=== PATIENT | male | born 1965 | race Caucasian/White ===

== ENCOUNTER 2017-03-21 11:08 | Emergency (ER) | payer OTHER ==
--- NOTE | 2017-03-21 14:01 | UC ---
Neck Pain HPI - HPI Summary HPI Summary: Patient presents to the with CC of mass to the left side of the neck and submandibular area just as he is about ready to eat. He states the moment he starts salivating, the areas become very large, are only slightly tender to the touch and will resolve spontaneously in less than 1 hour. Denies any trauma, recent illness. He is traveling and is also currently on opioids for chronic pain. Denies other symptoms. Denies fevers, sweats or chills. Otherwise healthy. He denies dysphagia, odynophagia or tongue swelling. - History of Current Complaint Chief Complaint: UCGeneralIllness Stated Complaint: NECK COMPLAINT Time Seen by Provider: 03/21/17 11:39 Hx Obtained From: Patient Onset/Duration Of Injury/Symptoms: Minutes Mechanism Of Injury: No Known Trauma Timing: Intermittent Episodes Onset/Duration: Sudden Onset, Lasting Minutes Severity: Mild Pain Intensity: 2 Pain Scale Used: 0-10 Numeric Location: Discrete At: - left parotid and submandibular Aggravating Factors: Nothing Alleviating Factors: Nothing Associated Signs & Symptoms: Positive: Negative - Risk Factors Meningitis Risk Factors: Negative - Allergies/Home Medications Allergies/Adverse Reactions: Allergies Allergy/AdvReac Type Severity Reaction Status Date / Time No Known Allergies Allergy Verified 03/21/17 11:27 Home Medications: Home Medications Gabapentin CAP(*) [Neurontin 400 mg CAP(*)] 1,200 mg PO TID 03/21/17 [History Confirmed 03/21/17] Hydromorphone ER TAB(NF) [Exalgo] 32 mg PO Q12H 03/21/17 [History Confirmed 09/02] OXcarbazepine TAB(*) [Trileptal 300 mg TAB(*)] 900 mg PO BID 03/21/17 [History Confirmed 03/21/17] oxyCODONE/Acetamin (NF) [Percocet 10325 (NF)] 1 tab PO BID 03/21/17 [ History Confirmed 03/21/17] PMH/Surg Hx/FS Hx/Imm Hx Previously Healthy: Yes - Surgical History Surgical History: Yes Surgery Procedure, Year, and Place: appy - Family History Known Family History: Positive: Unknown - Social History Occupation: Employed Full-time Lives: With Family Alcohol Use: None Substance Use Type: None Smoking Status (MU): Never Smoked Tobacco Review Of Systems Constitutional: Positive: Negative. Negative: Fever, Fatigue Skin: Negative: Rash Eyes: Negative: Photophobia, Diplopia ENT: Positive: Other - left parotid and submandibular. Negative: Sinus Congestion, Sinus Pain/Tenderness Respiratory: Positive: Negative Cardiovascular: Positive: Negative Musculoskeletal: Positive: Negative Neurological: Positive: Negative Psychological: Positive: Negative All Other Systems Reviewed And Are Negative: Yes Physical Exam Triage Information Reviewed: Yes Appearance: Well-Appearing, Well-Nourished Vital Signs: Initial Vital Signs Temp 98.4 F 03/21/17 11:30 Pulse 69 03/21/17 11:30 Resp 16 03/21/17 11:30 BP 116/81 03/21/17 11:30 Pulse Ox 99 03/21/17 11:30 Vital Signs Reviewed: Yes Eye Exam: Normal Eyes: Positive: Conjunctiva Clear ENT: Negative: Pharynx normal, Nasal drainage, TM bulging, Tonsillar swelling, Tonsillar exudate Dental Exam: Normal Neck: Positive: Tenderness @ - left parotid and submandibular slight enlargement. Negative: Nuchal Rigidity Respiratory Exam: Normal Respiratory: Positive: Chest non-tender, Lungs clear Cardiovascular Exam: Normal Cardiovascular: Positive: RRR Musculoskeletal Exam: Normal Musculoskeletal: Positive: Strength Intact Neurological Exam: Normal Neurological: Positive: Alert Psychological: Positive: Normal Response To Family, Age Appropriate Behavior Skin Exam: Normal Neck Pain Course/Dx - Course Course Of Treatment: Patient is evaluated for left parotid and submandibular enlargement at the start of salivating x 2 days. He states the areas become enlarged quickly (within a few minutes) and will then resolve spontaneously. Slight discomfort. Denies recent bacterial infections. He is encouraged to try hard sour candies for possible sialadenitis and return if symptoms worsen. Antibiotic deferred at this time and no ENT referral given as patient is from out of town and has appt with PCP in 2 days. He is given return precautions and is OK with plan and discharge. - Differential Dx/Diagnosis Differential Dx/HQI/PQRI: Dislocation, Dystonia, Torticollis Provider Diagnoses: SIALADENITIS Discharge - Discharge Plan Condition: Stable Disposition: HOME Patient Education Materials: Parotid Duct Obstruction (ED), Sialoadenitis (ED) Referrals: No Primary Care Phys,NOPCP [Primary Care Provider] - Additional Instructions: Please follow up with your PCP in 2 days as discussed Will try hard sour candies at this time and if any symptoms become worse - go to the ED You can discuss with your doctor any need for imaging or antibiotics, but at this time, we will defer Biotene is also very good for salivary stones - this is a mouthwash OTC.
== END 2017-03-21 12:07 | disposition home or self-care (01) ==
LOC: UCEAST 11:08
DX: K11.20 Sialoadenitis, unspecified (principal)
CPT/HCPCS: 99201; G0463